=== PATIENT | female | born 1995 | race Two or more races ===

== ENCOUNTER 2020-08-27 12:15 | Emergency (ER) | payer OTHER ==
[~2020-08-27] VITALS: Ht 160 cm; Wt 64.9 kg
[2020-08-27] MEDS ORDERED: PRENATAL GUMMI1 EACH PO (12:26)
== END 2020-08-27 19:00 | disposition home or self-care (01) ==
LOC: ER 12:15
DX: O21.0 Mild hyperemesis gravidarum (principal); Z3A.01 Less than 8 weeks gestation of pregnancy

== ENCOUNTER 2020-08-30 18:20 | Emergency (ER) | payer OTHER ==
[~2020-08-30] VITALS: Ht 160 cm; Wt 64.9 kg
[~2020-08-30 18:20] MED LIST: PRENATAL GUMMI1 EACH PO
== END 2020-08-30 20:21 | disposition home or self-care (01) ==
LOC: ER 18:20
DX: O21.0 Mild hyperemesis gravidarum (principal); Z34.01 Encounter for supervision of normal first pregnancy, first trimester

== ENCOUNTER 2021-03-13 14:45 | Inpatient (IN) | payer OTHER ==
[~2021-03-13] VITALS: Ht 160 cm; Wt 69.9 kg
== END 2021-03-21 12:29 | disposition home or self-care (01) | DRG 807 ==
LOC: LDR 03-19 10:48 → OB/GYN 03-19 21:22 → SURG-SUITE 03-19 21:59 → OB/GYN 04-08 14:45
PROVIDERS: ADMIT Obstetrics & Gynecology; ATTEND Obstetrics & Gynecology
PROC: 10E0XZZ Delivery of Products of Conception, External Approach (ICD-10-PCS; principal; 2021-03-19)
PROC: 0W8NXZZ Division of Female Perineum, External Approach (ICD-10-PCS; 2021-03-19)
PROC: 4A1HXFZ Monitoring of Products of Conception, Cardiac Rhythm, External Approach (ICD-10-PCS; 2021-03-19)
DX: O80 Encounter for full-term uncomplicated delivery (principal); Z37.0 Single live birth; Z3A.38 38 weeks gestation of pregnancy; Z20.822 Contact with and (suspected) exposure to COVID-19

== ENCOUNTER 2024-11-29 06:32 | Inpatient (IN) | payer OTHER ==
[2024-11-29] VITALS (9 sets, daily range): BP systolic 110–134; BP diastolic 60–82
[~2024-11-29] VITALS: Ht 160 cm; Wt 75.7 kg
[2024-11-29] MEDS ORDERED: RINGERS SOLUTION,LACTATED 1,000 ML IV SCH (08:15)
[2024-11-29 08:24] LABS: HEMATOCRIT 35.5 % (36.0-45.00); HEMOGLOBIN 11.5 g/dL (12.0-15.00); MEAN CELL VOLUME 75.8 fL (80.00-100.00); MEAN CORPUSCULAR HEMOGLOBIN 24.5 pg (27.00-32.0); MEAN CORPUSCULAR HGB CONC 32.4 g/dl (32.0-36.0); PLATELET COUNT 230 K/uL (150-450); RED BLOOD COUNT 4.69 M/uL (4.00-6.00); RED CELL DISTRIBUTION WIDTH 19.7 % (11.5-14.5)
[2024-11-29 08:34] LABS: PH,URINE 5.5 (5.0-8.0); URINE APPEARANCE Clear; URINE BILIRRUBIN Negative (NEGATIVE); URINE BLOOD Negative; URINE COLOR Yellow; URINE GLUCOSE Negative (NEGATIVE); URINE KETONE Negative (NEGATIVE); URINE LEUKOCYTE Moderate; URINE NITRATE Negative; URINE PROTEIN Negative (NEGATIVE); URINE UROBILINOGEN 0.2 E.U./dl
[2024-11-29 08:39] LABS: INR < 0.93; PARTIAL THROMBOPLASTIN TIME 27.6 SECONDS (22.0-34.0); PROTHROMBIN TIME 10.1 SECONDS (9.0-11.5)
[2024-11-29 08:40] LABS: URINE WBC 203.2 uL (0.0-23.2)
[2024-11-29 09:08] LABS: URINE RBC 0.5 uL (0.0-20.8)
[2024-11-29] MEDS ORDERED: OXYTOCIN 20 UNITS/500ML RL PIGGYBAG IV ONE (10:37)
[2024-11-29] MEDS ORDERED: OXYTOCIN 20 UNITS/500ML RL PIGGYBAG IV SCH (11:00)
[2024-11-29] MEDS ORDERED: PROMETHAZINE HCL 25 MG/ML AMPUL IV STA (15:20)
[2024-11-29] MEDS ORDERED: MEPERIDINE HCL/PF 50 MG/ML VIAL IV STA (15:20)
[2024-11-29] MEDS ORDERED: ERYTHROMYCIN BASE OPHT 1GM EACH TUBE OP ONE ×2 (18:10→20:00)
[2024-11-29] MEDS ORDERED: OXYTOCIN 20 UNITS/1000ML RL PIGGYBAG IV ONE (18:10)
[2024-11-29] MEDS ORDERED: LIDOCAINE HCL 1% 10ML VIAL ONE (18:11)
[2024-11-29] MEDS ORDERED: CHLORHEXIDINE GLUCONATE 120 ML BOTTLE TOP ONE (18:11)
[2024-11-29] MEDS ORDERED: OXYTOCIN 1,000 ML IV SCH (19:00)
[2024-11-29] MEDS ORDERED: ACETAMINOPHEN 500 MG GEL..CAP PO PRN (19:00)
[2024-11-29] MEDS ORDERED: CHLORHEXIDINE GLUCONATE 120 ML BOTTLE TOP SCH (19:00)
[2024-11-29] MEDS ORDERED: LIDOCAINE HCL 1% 10ML VIAL PERCUT ONE (20:00)
[2024-11-29 23:21] LABS: HEMATOCRIT 39.6 % (36.0-45.00); HEMOGLOBIN 12.3 g/dL (12.0-15.00); MEAN CELL VOLUME 77.3 fL (80.00-100.00); MEAN CORPUSCULAR HGB CONC 31.1 g/dl (32.0-36.0); PLATELET COUNT 242 K/uL (150-450); RED BLOOD COUNT 5.12 M/uL (4.00-6.00); RED CELL DISTRIBUTION WIDTH 19.7 % (11.5-14.5)
[2024-11-30 00:16] VITALS: BP 108/63
[2024-11-30 08:42] VITALS: BP 107/73
[2024-11-30] MEDS ORDERED: PNV,CALCIUM 72/IRON/FOLIC ACID 1 TAB TABLET PO SCH (09:00)
[2024-11-30 16:00] VITALS: BP 105/55
[2024-12-01 00:46] VITALS: BP 122/80; O2SAT 100
[2024-12-01 07:31] VITALS: BP 112/74
== END 2024-12-01 13:26 | disposition home or self-care (01) | DRG 807 ==
LOC: OB/GYN 06:32 → LDR 06:32 → OB/GYN 19:12
PROVIDERS: ADMIT Obstetrics & Gynecology; ATTEND Obstetrics & Gynecology
PROC: 10E0XZZ Delivery of Products of Conception, External Approach (ICD-10-PCS; principal; 2024-11-29)
PROC: 0W8NXZZ Division of Female Perineum, External Approach (ICD-10-PCS; 2024-11-29)
PROC: 4A1HXCZ Monitoring of Products of Conception, Cardiac Rate, External Approach (ICD-10-PCS; 2024-11-29)
DX: O80 Encounter for full-term uncomplicated delivery (principal); Z37.0 Single live birth; Z3A.39 39 weeks gestation of pregnancy; Z20.822 Contact with and (suspected) exposure to COVID-19